=== PATIENT | female | born 1945 ===

== ENCOUNTER → 2020-09-14 | Outpatient (CLI) | payer OTHER ==
[~2020-09-14] MED LIST: ASA81 MG PO; MACROBID 100 M100 MG PO; ULTRACET PO
== END | disposition home or self-care (01) ==
LOC: LAB 12:10
PROVIDERS: ATTEND Obstetrics & Gynecology Gynecology
DX: Z03.818 Encounter for observation for suspected exposure to other biological agents ruled out (principal)

== ENCOUNTER 2020-09-19 06:36 | Day surgery (SDC) | payer OTHER ==
[~2020-09-19 06:36] MED LIST changes: -MACROBID 100 M100 MG PO; -ULTRACET PO
[2020-09-19] MEDS ORDERED: MACROBID 100 M100 MG PO (09:59)
[2020-09-19] MEDS ORDERED: ULTRACET PO (10:01)
== END 2020-09-19 14:35 | disposition home or self-care (01) ==
LOC: CIR.AMB 06:36
PROVIDERS: ATTEND Obstetrics & Gynecology Gynecology
DX: N81.11 Cystocele, midline (principal); Z20.822 Contact with and (suspected) exposure to COVID-19